=== PATIENT | female | born 1970 ===

== ENCOUNTER 2019-09-13 13:22 | Emergency (ER) | payer OTHER ==
[~2019-09-13] VITALS: Ht 160 cm; Wt 74.8 kg
[2019-09-13] MEDS ORDERED: ODEFSEY TABLET1 EACH PO (13:54)
[2019-09-13] MEDS ORDERED: CLARITIN10 MG PO (17:08)
== END 2019-09-13 17:24 | disposition home or self-care (01) ==
LOC: ER 13:22
DX: J00 Acute nasopharyngitis [common cold] (principal); Z03.818 Encounter for observation for suspected exposure to other biological agents ruled out